=== PATIENT | female | born 1955 | race Caucasian/White ===

== ENCOUNTER 2018-06-25 17:37 | Inpatient (IN) | payer OTHER ==
[~2018-06-25] VITALS: Ht 152.4 cm; Wt 65.9 kg
[2018-06-25] MEDS ORDERED: SODIUM CHLORIDE FLUSH 10ML SYR IVF ONE (18:00)
[2018-06-25 18:30] LABS: BASOPHILS # (AUTO) 0.03 x10^3/uL (0-0.1); BASOPHILS % (AUTO) 0 % (0-1); EOSINOPHILS # (AUTO) 0.29 x10^3/uL (0-0.4); EOSINOPHILS % (AUTO) 2 % (1-7); LYMPHOCYTES # (AUTO) 0.57 x10^3/uL (1-3.4); LYMPHOCYTES % (AUTO) 4 % (22-44); MD NO; MEAN CORPUSCULAR HEMOGLOBIN 30.9 pg (27.0-34.8); MEAN CORPUSCULAR HGB CONC 33.5 g/dL (32.4-35.8); MEAN CORPUSCULAR VOLUME 92.3 fL (80-100); MEAN PLATELET VOLUME 11.8 fL (7.4-10.4); MONOCYTES # (AUTO) 0.45 x10^3/uL (0.2-0.8); MONOCYTES % (AUTO) 3 % (2-9); NEUTROPHILS % (AUTO) 91 % (42-75); PLATELET COUNT 181 x10^3/uL (130-400); RED BLOOD COUNT 4.68 x10^6/uL (3.82-5.3); RED CELL DISTRIBUTION WIDTH 13.8 % (9.6-15.2)
[2018-06-25 18:32] LABS: INTERNATIONAL NORMALIZED RATIO 1.12 (0.93-1.1); PROTHROMBIN TIME 11.7 Seconds (9.6-11.5)
[2018-06-25 18:34] LABS: ALANINE AMINOTRANSFERASE 24 U/L (12-78); ALBUMIN 3.3 g/dL (3.4-5.0); ANION GAP 11 mmol/L (5-15); CALCIUM 8.8 mg/dL (8.5-10.1); CHLORIDE 109 mmol/L (98-107); CREATININE 1.42 mg/dL (0.55-1.02)
[2018-06-25 18:37] LABS: ALKALINE PHOSPHATASE 83 U/L (45-117); BILIRUBIN,TOTAL 1.1 mg/dL (0.2-1.0); TOTAL PROTEIN 7.1 g/dL (6.4-8.2)
[2018-06-25] MEDS ORDERED: CLINDAMYCIN PMX 600MG/50ML 50 ML IVPB ONE (19:30)
[2018-06-25] MEDS ORDERED: CLINDAMYCIN PMX 600MG/50ML 50 ML ONE (19:58)
[2018-06-25] MEDS ORDERED: SODIUM CHLORIDE FLUSH 10ML SYR IVF PRN (20:00)
[2018-06-25 20:21] LABS: CULTURE INDICATED? YES; MICROSCOPIC INDICATED
[2018-06-25] MEDS ORDERED: SODIUM CHLORIDE 0.9% 1,000ML IVBOLUS ONE (20:30)
[2018-06-25 20:58] VITALS: BP 108/69
[2018-06-25] MEDS ORDERED: LABETALOL 5MG/ML, 20ML IVPush PRN (22:30)
[2018-06-25] MEDS ORDERED: DOCUSATE 100 MG CAPSULE PO PRN (22:30)
[2018-06-25] MEDS ORDERED: ONDANSETRON ODT 4 MG PO PRN (22:30)
[2018-06-25] MEDS ORDERED: LIDODERM 5% PATCH TD PRN (22:30)
[2018-06-25] MEDS ORDERED: TEMAZEPAM 15 MG CAPSULE PO PRN (22:30)
[2018-06-25] MEDS: SODIUM CHLORIDE 0.9% 1,000 ML IV SCH (22:41)
[2018-06-25 23:24] LABS: HEMOGLOBIN A1C 5.3 % (4.2-6.3)
[2018-06-26] MEDS ORDERED: PERMETHRIN CRM 5%, 60GM TP SCH
[2018-06-26] MEDS: HEPARIN 5,000 UNITS/ML, 1ML SQ SCH ×3 (01:13→18:33)
[2018-06-26 01:14] VITALS: BP 101/64
[2018-06-26] MEDS: CLINDAMYCIN PMX 600MG/50ML 50 ML IV SCH ×4 (01:14→20:16)
[2018-06-26 05:29] LABS: BASOPHILS # (AUTO) 0.02 x10^3/uL (0-0.1); BASOPHILS % (AUTO) 1 % (0-1); EOSINOPHILS # (AUTO) 0.01 x10^3/uL (0-0.4); EOSINOPHILS % (AUTO) 0 % (1-7); LYMPHOCYTES # (AUTO) 0.98 x10^3/uL (1-3.4); LYMPHOCYTES % (AUTO) 21 % (22-44); MD NO; MEAN CORPUSCULAR HEMOGLOBIN 30.4 pg (27.0-34.8); MEAN CORPUSCULAR HGB CONC 33.3 g/dL (32.4-35.8); MEAN CORPUSCULAR VOLUME 91.5 fL (80-100); MEAN PLATELET VOLUME 11.5 fL (7.4-10.4); MONOCYTES # (AUTO) 0.37 x10^3/uL (0.2-0.8); MONOCYTES % (AUTO) 8 % (2-9); NEUTROPHILS # (AUTO) 3.39 x10^3/uL (1.8-6.8); NEUTROPHILS % (AUTO) 71 % (42-75); PLATELET COUNT 153 x10^3/uL (130-400); RED CELL DISTRIBUTION WIDTH 13.5 % (9.6-15.2)
[2018-06-26 05:34] LABS: ANION GAP 7 mmol/L (5-15); CALCIUM 7.9 mg/dL (8.5-10.1); CHLORIDE 112 mmol/L (98-107)
[2018-06-26 05:45] LABS: CHOLESTEROL, TOTAL 146 mg/dL (140-239); CREATININE 0.96 mg/dL (0.55-1.02); FREE T4 (FREE THYROXINE) 0.94 ng/dL (0.76-1.46); HDL CHOL % 20 % (28-40); HDL CHOLESTEROL (DIRECT) 29 mg/dL (40-60); LDL CHOLESTEROL,CALCULATED 99 mg/dL (54-169); LDL/HDL RATIO 3.4 (0.5-3.0); TRIGLYCERIDES 90 mg/dL (50-200); VLDL CHOLESTEROL 18 mg/dL (0-25)
[2018-06-26 07:23] VITALS: BP 106/65
[2018-06-26] MEDS: SODIUM CHLORIDE 0.9% 1,000 ML IV SCH ×2 (07:45→18:33)
[2018-06-26 16:50] VITALS: BP 101/56
[2018-06-26 20:19] VITALS: BP 94/63
[2018-06-27] MEDS: CLINDAMYCIN PMX 600MG/50ML 50 ML IV SCH ×4 (01:55→19:58)
[2018-06-27] MEDS: SODIUM CHLORIDE 0.9% 1,000 ML IV SCH ×3 (01:55→19:58)
[2018-06-27] MEDS: HEPARIN 5,000 UNITS/ML, 1ML SQ SCH ×3 (01:55→19:58)
[2018-06-27 01:56] VITALS: BP 93/58
[2018-06-27 06:41] VITALS: BP 103/66
[2018-06-27 12:23] VITALS: BP 102/69
[2018-06-27 19:05] VITALS: BP 109/71
[2018-06-27] MEDS: ACETAMINOPHEN 325 MG TABLET PO PRN (19:59)
[2018-06-28 00:18] VITALS: BP 126/70
[2018-06-28] MEDS: CLINDAMYCIN PMX 600MG/50ML 50 ML IV SCH (02:15)
[2018-06-28] MEDS: HEPARIN 5,000 UNITS/ML, 1ML SQ SCH ×2 (03:30→10:59)
[2018-06-28] MEDS: SODIUM CHLORIDE 0.9% 1,000 ML IV SCH (06:05)
[2018-06-28 07:16] VITALS: BP 115/74
[2018-06-28] MEDS ORDERED: LEVO750T26 PO ×3 (07:27→14:58)
[2018-06-28] MEDS: LEVOFLOXACIN 750 MG TABLET PO SCH ×2 (08:10→08:11)
[2018-06-28] MEDS: ACETAMINOPHEN 325 MG TABLET PO PRN (08:10)
[2018-06-28 14:05] VITALS: BP 133/87
== END 2018-06-28 16:31 | disposition home or self-care (01) | DRG 871 ==
LOC: ED 20:06 → EDIP 20:11 → 3NE 20:51
PROVIDERS: ADMIT Family Medicine; ATTEND Family Medicine
DX: A41.9 Sepsis, unspecified organism (principal); N17.0 Acute kidney failure with tubular necrosis; N39.0 Urinary tract infection, site not specified; E87.2 Acidosis; R62.7 Adult failure to thrive; Z68.28 Body mass index [BMI] 28.0-28.9, adult; L03.031 Cellulitis of right toe; F03.90 Unspecified dementia, unspecified severity, without behavioral disturbance, psychotic disturbance, mood disturbance, and anxiety; R73.9 Hyperglycemia, unspecified; B96.20 Unspecified Escherichia coli [E. coli] as the cause of diseases classified elsewhere; M19.90 Unspecified osteoarthritis, unspecified site; M85.80 Other specified disorders of bone density and structure, unspecified site; Z83.3 Family history of diabetes mellitus; Z88.1 Allergy status to other antibiotic agents; Z88.0 Allergy status to penicillin; Z88.2 Allergy status to sulfonamides
CPT/HCPCS: 36415; 71045; 80048; 80053; 80061; 81001; 83036; 83605; 83735; 84100; 84439; 84443; 85025; 85610; 85730; 87040; 87077; 87086; 87186; 93005; 96361; 96365; G0378; J1644; J7030

== ENCOUNTER 2018-07-30 10:10 | Emergency (ER) | payer MEDICAID ==
[~2018-07-30] VITALS: Ht 165.1 cm; Wt 63.4 kg
[~2018-07-30 10:10] MED LIST: LEVO750T26 PO
--- NOTE | 2018-07-30 10:57 | NUR ---
PT C/O URINARY SYMPTOMS OVER LAST TWO DAYS, NAMELY PAINFUL URINATION. PT ALSO REPORTS CHILLS BUT NO FEVERS. PT DENIES ANY FLANK PAIN. PT HAD UTI LAST MONTH. PER FAMILY AT [facility] PT WAS ATEMPTING TO BE SEEN BY THE [facility] BUT HAS SOME BARRIERS TO GET CARE ESTABLISHED. REPORT TO ARIN GALLAGHER.
--- NOTE | 2018-07-30 10:58 | NUR ---
BEDSIDE REPORT FROM SIMON GALLAGHER, STRAIGHT CATH DONE AND UA SENT TO LAB. UA PENDING. PT ON MONITOR WITH CALL LIGHT WITHIN REACH
[2018-07-30 11:35] LABS: MICROSCOPIC NOT IND
[2018-07-30 11:39] LABS: CULTURE INDICATED? NO
--- NOTE | 2018-07-30 11:56 | NUR ---
PT RESTING IN GURNEY, FRIEND AT BEDSIDE, CALL LIGHT WITHIN REACH. AWAITING RECHECK
[2018-07-30] MEDS ORDERED: FLUCONAZOLE 100 MG TABLET ONE (12:15)
[2018-07-30] MEDS ORDERED: FLUCONAZOLE 100 MG TABLET PO ONE (12:30)
--- NOTE | 2018-07-30 13:04 | NUR ---
PT UP FOR DC, DIFLUCAN GIVEN, AWAITING DC PAPERWORK
[2018-07-30 13:05] VITALS: BP 147/87
== END 2018-07-30 13:51 | disposition home or self-care (01) ==
LOC: ED 11:08
DX: R30.0 Dysuria (principal); Z88.0 Allergy status to penicillin; Z88.2 Allergy status to sulfonamides
CPT/HCPCS: 81003; 99283